=== PATIENT | female | born 1990 | race Caucasian/White ===

== ENCOUNTER 2018-06-20 22:40 | Emergency (ER) | payer OTHER ==
[~2018-06-20] VITALS: Ht 167.6 cm; Wt 92.5 kg
[2018-06-21] MEDS ORDERED: TAMS0.4C PO (03:44)
[2018-06-21] MEDS ORDERED: KETO10TA2 PO (03:44)
== END 2018-06-21 03:59 | disposition home or self-care (01) ==
LOC: ER 22:40
DX: N20.1 Calculus of ureter (principal)

== ENCOUNTER 2020-10-29 09:52 | Emergency (ER) | payer OTHER ==
[~2020-10-29] VITALS: Ht 167.6 cm; Wt 81.6 kg
[~2020-10-29 09:52] MED LIST: KETO10TA2 PO; TAMS0.4C PO
== END 2020-10-29 17:14 | disposition home or self-care (01) ==
LOC: ER 09:52
DX: K29.00 Acute gastritis without bleeding (principal)